=== PATIENT | male | born 2000 | race Caucasian/White ===

== ENCOUNTER 2021-04-18 01:16 | Emergency (ER) | payer OTHER ==
[2021-04-18 02:43] LABS: CORONAVIRUS COVID-19 NAA NEGATIVE (NEGATIVE)
[2021-04-18] MEDS ORDERED: Ketorolac 15 MG/ML SDV IM ONE (02:56)
[2021-04-18] MEDS ORDERED: Ondansetron 4 MG Tab.DIS PO ONE (02:57)
== END 2021-04-18 03:45 | disposition home or self-care (01) ==
LOC: JD.ED 01:16
DX: B34.9 Viral infection, unspecified (principal); Z88.2 Allergy status to sulfonamides; Z20.822 Contact with and (suspected) exposure to COVID-19
CPT/HCPCS: 0240U; 96372; 99284; A9270; J1885

== ENCOUNTER 2023-03-27 05:44 | Emergency (ER) | payer BC, OTHER ==
[2023-03-27] MEDS ORDERED: Dexamethasone 6 MG TABLET PO ONE (06:12)
[2023-03-27] MEDS ORDERED: Orphenadrine 100 MG Tab.ER PO ONE (06:13)
[2023-03-27] MEDS ORDERED: Acetaminophen/oxyCODONE 325-5 MG Tab PO ONE (06:13)
== END 2023-03-27 06:35 | disposition home or self-care (01) ==
LOC: JD.ED 05:44
DX: M54.50 Low back pain, unspecified (principal); Z88.2 Allergy status to sulfonamides
CPT/HCPCS: 99283; A9270; J8540